=== PATIENT | female | born 1970 | race Caucasian/White ===

== ENCOUNTER 2021-03-12 18:54 | Emergency (ER) | payer BC ==
[2021-03-12 21:02] LABS: Urine Blood Trace-lysed (Negative); Urine Glucose Negative (Negative); Urine Protein Negative (Negative); Urine Specific Gravity <=1.005 (1.005-1.030); Urine pH 6.5 (5.0-7.0)
[2021-03-12 21:58] LABS: Urine Bacteria <20 /HPF (<20); Urine Mucus 1+ /HPF (NONE SEEN)
[2021-03-12] MEDS ORDERED: NA CHLORIDE 0.9% 0 ML ONE (22:16)
[2021-03-12] MEDS ORDERED: MORPHINE 2 MG/ML SYR ONE ×2 (22:16→22:39)
[2021-03-12 22:27] LABS: Absolute Lymphocytes (CBC) 0.7 K/uL (0.7-4.9); Basophils % 0.1 % (0-1.3); Hematocrit 28.6 % (36.0-45.0); Lymphocytes % 12.8 % (15.3-44.8); MPV 6.9 fL (7.6-11.3); RBC Red Blood Cell Count 3.33 M/uL (3.86-4.86)
[2021-03-12] MEDS ORDERED: NA CHLORIDE 0.9% 1,000 ML ONE (22:39)
[2021-03-12 22:44] LABS: Albumin 3.1 g/dL (3.4-5.0); Bilirubin Direct 0.2 mg/dL (0-0.2); Bilirubin Total 0.5 mg/dL (0.2-1.0); Protein, Total 7.2 g/dL (6.4-8.2)
[2021-03-12 22:45] LABS: Potassium 2.8 mmol/L (3.5-5.1)
[2021-03-12] MEDS ORDERED: POTASSIUM 25 MEQ EFFERV TAB ONE (23:42)
[2021-03-12] MEDS ORDERED: CEFTRIAXONE 1000 MG/VIAL ONE (23:42)
[2021-03-12] MEDS ORDERED: KCL 20 MEQ/100 mL IVPB 20 MEQ/100 ML BAG IV ONE (23:43)
[2021-03-13] MEDS ORDERED: POTASSIUM 25 MEQ EFFERV TAB ONE (01:27)
[2021-03-13] MEDS ORDERED: NA CHLORIDE 0.9% 1,000 ML ONE (02:17)
--- NOTE | 2021-03-13 02:45 | EDPHYS ---
Physician Documentation [facility] Name: Ingris Wheeler Age: 51 yrs Sex: Female : 1970 Arrival Date: 03/12/2021 Time: 18:56 Bed 20 Private MD: ED Physician Jerry Paige HPI: 03/12 21:45 This 51 yrs old Female presents to ER via Ambulatory with complaints of cp Fever, Urinary Problem - uti, symptoms worsening. 21:45 The patient complains of pain in the mid back area. cp 21:45 The pain radiates to the abdomen. Onset: The symptoms/episode began/occurred last week. cp Associated signs and symptoms: Pertinent positives: dysuria, fever, headache, Pertinent negatives: pain radiating to the lower extremities, vomiting. Severity of pain: in the emergency department the pain is unchanged despite home interventions. Patient reports she was prescribed 3 days of oral Levaquin this past Thursday, took last dose this morning and feels like symptoms are worse. Patient reports continued fever of 101 earlier today. Historical: - Allergies: 19:44 No Known Allergies; sj1 - Home Meds: 19:44 Pyridium Oral [Active]; sj1 - PMHx: 19:44 None; sj1 - Immunization history:: Client reports receiving the Jacky \T\ Jacky single-dose vaccine. - Social history:: Smoking status: Patient denies any tobacco usage or history of. ROS: 22:00 Constitutional: Negative for fever, poor PO intake. cp 22:00 Eyes: Negative for injury, pain, redness, and discharge. cp 22:00 ENT: Negative for ear pain, sore throat, difficulty swallowing, difficulty handling secretions. 22:00 Cardiovascular: Negative for chest pain. 22:00 Respiratory: Negative for cough, shortness of breath, wheezing. 22:00 Abdomen/GI: Positive for abdominal pain, nausea, Negative for vomiting, diarrhea, constipation, black/tarry stool, rectal bleeding. 22:00 Back: Positive for flank pain, bilaterally, Negative for injury or acute deformity. 22:00 : Positive for urinary symptoms. 22:00 Skin: Negative for rash. 22:00 Neuro: Negative for altered mental status, headache, weakness. 22:00 All other systems are negative. Exam: 22:05 Constitutional: The patient appears in no acute distress, alert, awake, non-toxic, well cp developed, well nourished, uncomfortable. 22:05 Head/Face: Normocephalic, atraumatic. cp 22:05 Eyes: Periorbital structures: appear normal, Conjunctiva: normal, no exudate, no injection, Sclera: no appreciated abnormality, Lids and lashes: appear normal, bilaterally. 22:05 ENT: External ear(s): are unremarkable, Nose: is normal, Mouth: Lips: moist, Oral mucosa: moist, Posterior pharynx: Airway: no evidence of obstruction, patent. 22:05 Neck: ROM/movement: is normal, is supple, without pain, no range of motions limitations. 22:05 Chest/axilla: Inspection: normal. 22:05 Cardiovascular: Rate: normal, Rhythm: regular. 22:05 Respiratory: the patient does not display signs of respiratory distress, Respirations: normal, no use of accessory muscles, no retractions, labored breathing, is not present, Breath sounds: are clear throughout, no decreased breath sounds, no stridor, no wheezing. 22:05 Abdomen/GI: Inspection: abdomen appears normal, Bowel sounds: active, all quadrants, Palpation: soft, in all quadrants, mild abdominal tenderness, in the anterior aspect of left lateral abdomen, rebound tenderness, is not appreciated, involuntary guarding, is not appreciated. 22:05 Back: pain, that is mild, of the mid back area, ROM is painful, with all movement, Straight leg raises: of both lower extremities does not illicit pain. 22:05 Skin: no rash present. 22:05 Neuro: Orientation: to person, place \T\ time. Mentation: is normal, Motor: moves all fours, strength is normal, Sensation: is normal. 23:33 ECG was reviewed by the Attending Physician. cp Vital Signs: 19:41 BP 127 / 96; Pulse 104; Resp 17 S; Temp 98; Pulse Ox 97% ; Weight 61.23 kg; Height 5 sj1 ft. 8 in. (172.72 cm); Pain 2/10; 21:33 BP 134 / 89; Pulse 92; Resp 18; Temp 98.0(O); Pulse Ox 100% ; Pain 0/10; kc4 22:40 BP 119 / 82; Pulse 88; Resp 18; Temp 98.0; Pulse Ox 99% on R/A; Pain 0/10; kc4 23:30 BP 122 / 83; Pulse 88; Resp 16; Pulse Ox 100% on R/A; Pain 0/10; kc4 03/13 01:03 BP 127 / 84; Pulse 80; Resp 18; Pulse Ox 100% ; Pain 0/10; kc4 02:36 BP 125 / 79; Pulse 98; Resp 18; Temp 98.0(O); Pulse Ox 100% on R/A; Pain 0/10; kc4 03:19 BP 112 / 73 LA Supine (auto/reg); Pulse 98 MON; Resp 16 S; Temp 98.7(O); Pulse Ox 100% df1 on R/A; Pain 0/10; 03/12 19:41 Body Mass Index 20.53 (61.23 kg, 172.72 cm) sj1 MDM: 03/12 21:13 Patient medically screened. cp 22:00 Differential diagnosis: nephrolithiasis, pyelonephritis, UTI, sepsis, diverticulitis. 03/13 02:40 Data reviewed: vital signs, nurses notes, lab test result(s), radiologic studies, CT cp scan. 02:40 Counseling: I had a detailed discussion with the patient and/or guardian regarding: the cp historical points, exam findings, and any diagnostic results supporting the discharge/admit diagnosis, lab results, radiology results, the need for outpatient follow up, a family practitioner, to return to the emergency department if symptoms worsen or persist or if there are any questions or concerns that arise at home. Response to treatment: the patient's symptoms have markedly improved after treatment, patient is well hydrated. VSS. Pain improved with meds. Labs reviewed. Patient appears non-toxic and tolerating po fluids. Will discharge to home for continued monitoring. 03/12 20:57 Order name: Urine Microscopic Only; Complete Time: 23:09 kc4 03/12 23:09 Interpretation: Normal except: URBC 5-10. cp 03/12 21:03 Order name: Urine Dipstick-Ancillary EDMS 03/12 21:03 Order name: Urine Dipstick-Ancillary; Complete Time: 21:38 EDMS 03/12 21:38 Order name: Basic Metabolic Panel; Complete Time: 23:09 cp 03/13 01:00 Interpretation: Normal except: K 2.8; GLUC 110; BUN 6; GFR 89. cp 03/12 21:38 Order name: CBC with Diff; Complete Time: 23:09 03/13 00:11 Interpretation: Normal except: RBC 3.33; HGB 9.9; HCT 28.6; NAT% 74.2; LYM% 12.8; MN% cp 12.4. 03/12 21:38 Order name: Hepatic Function; Complete Time: 23:09 03/12 21:38 Order name: Lipase; Complete Time: 23:09 03/12 21:38 Order name: Blood Culture Adult (2) cp 03/12 21:38 Order name: Procalcitonin; Complete Time: 00:11 03/12 21:38 Order name: Lactate; Complete Time: 23:09 03/12 21:39 Order name: CT Stone Protocol 03/12 20:57 Order name: Urine Dipstick-Ancillary (obtain specimen); Complete Time: 21:14 kc4 03/12 21:38 Order name: IV Saline Lock; Complete Time: 22:13 03/12 21:38 Order name: Labs collected and sent; Complete Time: 22:13 03/12 21:38 Order name: Cath; Complete Time: 03:17 03/12 23:11 Order name: EKG; Complete Time: 23:12 03/12 23:11 Order name: EKG - Nurse/Tech: low potassium; Complete Time: 23:54 03/13 01:00 Order name: PO challenge; Complete Time: 01:03 cp EC/19 23:33 Rate is 83 beats/min. Rhythm is regular. [place] interval is normal. QRS interval is normal. cp QT interval is normal. T waves are Inverted in lead aVR. Interpreted by me. Reviewed by me. Administered Medications: 22:18 Drug: NS 0.9% 1000 ml Route: IV; Rate: 1 bolus; Site: right antecubital; 4 03/13 03:17 Follow up: IV Status: Completed infusion df1 03/12 22:18 Not Given (Patient Refused): morphine 2 mg IVP once; (PAIN>8) RASS on ADMN: Combtv4, kc4 Very Agttd3, Agttd2, Rstlss1, AlertClm0, Drwsy-1, LtSdtn-2, ModSdtn-3, DpSdtn-4, UnArsble-5 x2 23:54 Drug: Rocephin (cefTRIAXone) 1 grams Route: IV; Rate: calculated rate; Site: right df1 antecubital; 03/13 03:17 Follow up: IV Status: Completed infusion df1 03/12 23:54 Drug: Potassium Chloride 20 mEq Route: IV; Rate: calculated rate; Site: right df1 antecubital; 03/13 03:17 Follow up: IV Status: Completed infusion df1 03/12 23:54 Drug: Potassium Effervescent Tablet 50 mEq Route: PO; df1 03/13 03:16 Follow up: Response: No adverse reaction df1 01:03 Drug: Potassium Effervescent Tablet 50 mEq Route: PO; kc4 03:16 Follow up: Response: No adverse reaction df1 01:52 Drug: NS 0.9% 1000 ml Route: IV; Rate: 1 bolus; Site: right antecubital; kc4 03:16 Follow up: IV Status: Completed infusion df1 Disposition: 07:29 Co-signature as Attending Physician, Jerry Paige MD. [email or web address] Disposition Summary: 03/13/21 02:44 Discharge Ordered Location: Home cp Problem: new cp Symptoms: have improved cp Condition: Stable cp Diagnosis - Pyelonephritis acute cp - Hypokalemia cp Followup: cp - With: Private Physician - When: 1 - 2 days - Reason: Recheck today's complaints Discharge Instructions: - Discharge Summary Sheet cp - Potassium Content of Foods cp - Pyelonephritis, Adult cp Forms: - Medication Reconciliation Form cp - Thank You Letter cp - Antibiotic Education cp - Prescription Opioid Use cp Prescriptions: - Zofran 4 mg Oral Tablet - take 1 tablet by ORAL route every 12 hours As needed; 20 tablet; Refills: 0, cp Product Selection Permitted - Bactrim DS 800-160 mg Oral Tablet - take 1 tablet by ORAL route every 12 hours for 10 days; 20 tablet; Refills: 0, cp Product Selection Permitted Signatures: Dispatcher [employer] EDMS Donovan Tyler PA PA cp Jerry Paige MD MD [email or web address] Criss Ferrara kc4 Sharon Arvizu df1 Laura Rico RN RN sj1 Corrections: (The following items were deleted from the chart) 03/12 19:45 19:44 Home Meds: None; sj1 sj1 03/13 00:11 03/12 23:10 Normal except: RBC 3.33; HGB 9.9; HCT 28.6. cp cp
--- NOTE | 2021-03-13 02:45 | ER ---
Nurse's Notes [facility] Name: Ingris Wheeler Age: 51 yrs Sex: Female : 1970 Arrival Date: 03/12/2021 Time: 18:56 Bed 20 Private MD: Diagnosis: Pyelonephritis acute;Hypokalemia Presentation: 03/12 19:41 Chief complaint: Patient states: reports cloudy urine, burning with urination, fever sj1 101, low back pain, nausea, headache. Finished levaquin and still taking pyridium. Coronavirus screen: Vaccine status: Patient reports receiving the 2nd dose of the covid vaccine. Date December 2020. Ebola Screen: Patient negative for fever greater than or equal to 101.5 degrees Fahrenheit, and additional compatible Ebola Virus Disease symptoms Patient denies exposure to infectious person. Patient denies travel to an Ebola-affected area in the 21 days before illness onset. No symptoms or risks identified at this time. 19:41 Method Of Arrival: Ambulatory sj1 19:41 Acuity: ALYSON 3 sj1 19:45 Initial Sepsis Screen: Does the patient meet any 2 criteria? No. Patient's initial sj1 sepsis screen is negative. Does the patient have a suspected source of infection? No. Patient's initial sepsis screen is negative. Risk Assessment: Do you want to hurt yourself or someone else? Patient reports no desire to harm self or others. Onset of symptoms was March 07, 2021. Triage Assessment: 19:44 General: Appears in no apparent distress. General: Behavior is calm, cooperative, sj1 appropriate for age. Pain: Complains of pain in low back pain and headache. : Reports burning with urination. Historical: - Allergies: 19:44 No Known Allergies; sj1 - Home Meds: 19:44 Pyridium Oral [Active]; sj1 - PMHx: 19:44 None; sj1 - Immunization history:: Client reports receiving the Jacky \T\ Jacky single-dose vaccine. - Social history:: Smoking status: Patient denies any tobacco usage or history of. Screenin/20 01:07 Abuse screen: Denies threats or abuse. Denies injuries from another. Nutritional kc4 screening: No deficits noted. On no prescribed diet Difficulty chewing/swallowing? No. Tuberculosis screening: No symptoms or risk factors identified. Never had TB. Possible symptoms: None Risk factors: None. Fall Risk None identified. No fall in past 12 months (0 pts). No secondary diagnosis (0 pts). IV access (20 points). Ambulatory Aid- Crutches/Cane/Walker (15 pts). Gait- Normal/Bed Rest/Wheelchair (0 pts) Mental Status- Oriented to own ability (0 pts). Total Grullon Fall Scale indicates No Risk (0-24 pts). Assessment: 03/12 21:32 General: Appears in no apparent distress. well groomed, Behavior is calm, cooperative. kc4 Pain:. 03/13 01:07 Reassessment: Patient appears in no apparent distress at this time. Patient and/or kc4 family updated on plan of care and expected duration. Pain level reassessed. Patient is alert, oriented x 3, equal unlabored respirations, skin warm/dry/pink. Patient denies pain at this time. Patient states feeling better. 01:10 Neuro: No deficits noted. Cardiovascular: No deficits noted. Respiratory: No deficits kc4 noted. GI: No deficits noted. : No deficits noted. : No deficits noted. Urine is clear, Reports urgency, urinary frequency, Denies cramping discharge, inability to void, vaginal bleeding, vaginal itching. EENT: No deficits noted. No signs and/or symptoms were reported regarding the EENT system. Derm: No deficits noted. No signs and/or symptoms reported regarding the dermatologic system. Musculoskeletal: No deficits noted. No signs and/or symptoms reported regarding the musculoskeletal system. Vital Signs: 03/12 19:41 BP 127 / 96; Pulse 104; Resp 17 S; Temp 98; Pulse Ox 97% ; Weight 61.23 kg; Height 5 sj1 ft. 8 in. (172.72 cm); Pain 2/10; 21:33 BP 134 / 89; Pulse 92; Resp 18; Temp 98.0(O); Pulse Ox 100% ; Pain 0/10; kc4 22:40 BP 119 / 82; Pulse 88; Resp 18; Temp 98.0; Pulse Ox 99% on R/A; Pain 0/10; kc4 23:30 BP 122 / 83; Pulse 88; Resp 16; Pulse Ox 100% on R/A; Pain 0/10; kc4 03/13 01:03 BP 127 / 84; Pulse 80; Resp 18; Pulse Ox 100% ; Pain 0/10; kc4 02:36 BP 125 / 79; Pulse 98; Resp 18; Temp 98.0(O); Pulse Ox 100% on R/A; Pain 0/10; kc4 03:19 BP 112 / 73 LA Supine (auto/reg); Pulse 98 MON; Resp 16 S; Temp 98.7(O); Pulse Ox 100% df1 on R/A; Pain 0/10; 03/12 19:41 Body Mass Index 20.53 (61.23 kg, 172.72 cm) [facility] ED Course: 03/12 18:56 Patient arrived in ED. as 19:44 Triage completed. sj1 20:56 Criss Ferrara is Primary Nurse. kc4 21:06 Donovan Tyler PA is PHCP. cp 21:06 Jerry Paige MD is Attending Physician. cp 21:28 Inserted saline lock: 20 gauge in left antecubital area, using aseptic technique. kc4 21:32 Urine Microscopic Only Sent. kc4 21:32 Urine Dipstick-Ancillary Sent. kc4 22:19 Lactate Sent. kc4 22:19 Procalcitonin Sent. kc4 22:19 Blood Culture Adult (2) Sent. kc4 22:19 Basic Metabolic Panel Sent. kc4 22:19 CBC with Diff Sent. kc4 22:19 Hepatic Function Sent. kc4 22:19 Lipase Sent. kc4 22:30 CT Stone Protocol In Process Unspecified. EDMS 03/13 01:07 No provider procedures requiring assistance completed. kc4 01:07 Patient has correct armband on for positive identification. Placed in gown. Bed in low kc4 position. Call light in reach. Side rails up X 1. 03:18 Arm band placed on left wrist. df1 03:19 IV discontinued, intact, bleeding controlled, No redness/swelling at site. df1 Administered Medications: 03/12 22:18 Drug: NS 0.9% 1000 ml Route: IV; Rate: 1 bolus; Site: right antecubital; kc4 03/13 03:17 Follow up: IV Status: Completed infusion df1 03/12 22:18 Not Given (Patient Refused): morphine 2 mg IVP once; (PAIN>8) RASS on ADMN: Combtv4, kc4 Very Agttd3, Agttd2, Rstlss1, AlertClm0, Drwsy-1, LtSdtn-2, ModSdtn-3, DpSdtn-4, UnArsble-5 x2 23:54 Drug: Rocephin (cefTRIAXone) 1 grams Route: IV; Rate: calculated rate; Site: right df1 antecubital; 03/13 03:17 Follow up: IV Status: Completed infusion df1 03/12 23:54 Drug: Potassium Chloride 20 mEq Route: IV; Rate: calculated rate; Site: right df1 antecubital; 03/13 03:17 Follow up: IV Status: Completed infusion df1 03/12 23:54 Drug: Potassium Effervescent Tablet 50 mEq Route: PO; df1 03/13 03:16 Follow up: Response: No adverse reaction df1 01:03 Drug: Potassium Effervescent Tablet 50 mEq Route: PO; kc4 03:16 Follow up: Response: No adverse reaction df1 01:52 Drug: NS 0.9% 1000 ml Route: IV; Rate: 1 bolus; Site: right antecubital; kc4 03:16 Follow up: IV Status: Completed infusion df1 Outcome: 02:44 Discharge ordered by MD. cp 03:18 Discharged to home ambulatory. df1 03:18 Condition: improved 03:18 Discharge instructions given to patient, Instructed on discharge instructions, follow up and referral plans. medication usage, Demonstrated understanding of instructions, follow-up care, medications, Prescriptions given X 1. 03:20 Patient left the ED. df1 Signatures: Dispatcher [employer] EDMS Maribell Mullins Corey, PA PA Criss Denton kc4 Sharon Arvizu df1 Laura Rico, RN RN sj1 Corrections: (The following items were deleted from the chart) 03/12 19:45 19:44 Home Meds: None; sj1 sj1
[2021-03-13 04:44] VITALS: O2SAT 100
[2021-03-13 04:48] VITALS: BP 112/73; TEMP 98.7
--- NOTE | 2021-03-13 18:18 | RAD REPORT ---
EXAM DESCRIPTION: CT - Stone Protocol - 03/13/2021 6:55 am CLINICAL HISTORY: FLANK PAIN. Lower abdominal and lower back pain, pressure with urination. COMPARISON: None. TECHNIQUE: Serial axial CT images were obtained from above the diaphragm through the pubic symphysis without administration of intravenous or oral contrast. All CT scans are performed using dose optimization techniques as appropriate, including automated exp osure control and/or standardized protocols, where dose is adjusted for indication for exam and body habitus. FINDINGS: Thoracic: No significant abnormality. Hepatobiliary: No obvious concerning hepatic lesion identified in the absence of intravenous contrast . The gallbladder is surgically absent. No biliary ductal dilatation. Pancreas: Unremarkable. Spleen: Unremarkable. Gastrointestinal: No evidence of bowel obstruction or perienteric inflammation. The appendix is cathie l. Small amount of fecal material throughout the colon. Adrenals: No abnormality identified in either adrenal gland. Renal: Mild right perinephric fat stranding, asymmetric as compared to the left. No obvious parenchym al abnormality in either kidney in the absence of intravenous contrast. No hydronephrosis or urolithi asis. Bladder/Reproductive: Unremarkable appearance of the urinary bladder by CT technique. Vascular/Lymphatics: No lymphadenopathy identified by CT size criteria. Mild calcific atherosclerosis . Abdominal aorta is normal in caliber. Musculoskeletal: No concerning osseous lesion identified. Fluid / peritoneum: Trace free fluid in the pelvis. No free intraperitoneal air identified. IMPRESSION: 1. Mild right-sided perinephric fat stranding. Correlate for infection (pyelitis or py elonephritis). 2. No hydronephrosis or urolithiasis. 3. Trace free fluid in the pelvis. Electronically signed by: Lesli Davila MD 03/12/2021 10:58 PM CDT Due to temporary technical issues with the PACS/Fluency reporting system, reports are being signed by the in house radiologists without review as a courtesy to insure prompt reporting. The interpreting radiologist is fully responsible for the content of the report.
== END 2021-03-13 03:20 | disposition home or self-care (01) ==
LOC: ER 18:54
DX: N10 Acute pyelonephritis (principal); E87.6 Hypokalemia
CPT/HCPCS: 93005; 87040 ×2; 85025; 80048; 36415; 80076; 83605; 83690; 84145; 76377; 74176; J3480; J7030 ×2; 81003; 81015; J2270